=== PATIENT | female | born 1945 | race Caucasian/White ===

== ENCOUNTER 2021-07-22 10:36 | Inpatient (IN) | payer OTHER ==
[~2021-07-22] VITALS: Ht 162.6 cm; Wt 60.3 kg
[~2021-07-22 10:36] MED LIST: ALBUTEROL1.25 MG/3 IH; AMIODARONE HCL400 MG; AVAPRO300 MG PO; CEFADROXIL500 MG PO; COUMADIN1 MG PO; COUMADIN2.5 MG PO; IMDUR30 MG PO; ISOSORBIDE MONO30 MG; LEVAQUIN750 MG PO; LOPRESSOR25 MG; NORVASC5 MG PO; PERCOCET 5/3251 TAB PO; XARELTO10 MG PO; ZYNCOF 20-400120 ML PO
[2021-07-26] MEDS ORDERED: LISINOPRIL5 MG (10:22)
[2021-07-26] MEDS ORDERED: TRADJENTA5 MG (10:22)
[2021-07-26] MEDS ORDERED: SERTRALINE HCL50 MG (10:22)
[2021-07-26] MEDS ORDERED: ALENDRONATE SOD70 MG (10:22)
[2021-07-26] MEDS ORDERED: METOPROLOL SUCC25 MG (10:23)
[2021-07-26] MEDS ORDERED: CLONAZEPAM0.5 MG (10:23)
[2021-07-26] MEDS ORDERED: ROSUVASTATIN CA10 MG (10:23)
[2021-07-26] MEDS ORDERED: DILTIAZEM 24HR180 MG (10:23)
[2021-07-26] MEDS ORDERED: FUROSEMIDE20 MG (10:23)
[2021-07-26] MEDS ORDERED: FAMOTIDINE20 MG (10:24)
[2021-07-26] MEDS ORDERED: ATORVASTATIN CA20 MG (10:24)
[2021-07-26] MEDS ORDERED: SYMBICORT 16010.2 GM (10:24)
[2021-07-26] MEDS ORDERED: CARVEDILOL12.5 M1 (10:24)
== END 2021-08-07 21:42 | disposition home or self-care (01) | DRG 564 ==
LOC: ER 10:36 → MEDI 07-23 11:54
PROVIDERS: ADMIT Internal Medicine; ATTEND Internal Medicine
PROC: BW21ZZZ Computerized Tomography (CT Scan) of Abdomen and Pelvis (ICD-10-PCS; 2021-07-23)
PROC: 3E0F7GC Introduction of Other Therapeutic Substance into Respiratory Tract, Via Natural or Artificial Opening (ICD-10-PCS; 2021-07-25)
PROC: B24BZZZ Ultrasonography of Heart with Aorta (ICD-10-PCS; 2021-07-27)
PROC: 4A12X4Z Monitoring of Cardiac Electrical Activity, External Approach (ICD-10-PCS; 2021-07-27)
PROC: 30233N1 Transfusion of Nonautologous Red Blood Cells into Peripheral Vein, Percutaneous Approach (ICD-10-PCS; principal; 2021-07-29)
PROC: 5A09557 Assistance with Respiratory Ventilation, Greater than 96 Consecutive Hours, Continuous Positive Airway Pressure (ICD-10-PCS; 2021-07-30)
PROC: 30233R1 Transfusion of Nonautologous Platelets into Peripheral Vein, Percutaneous Approach (ICD-10-PCS; 2021-08-03)
PROC: 05HY33Z Insertion of Infusion Device into Upper Vein, Percutaneous Approach (ICD-10-PCS; 2021-08-04)
DX: M89.8X5 Other specified disorders of bone, thigh (principal); I50.23 Acute on chronic systolic (congestive) heart failure; A41.89 Other specified sepsis; J96.90 Respiratory failure, unspecified, unspecified whether with hypoxia or hypercapnia; I48.20 Chronic atrial fibrillation, unspecified; C90.00 Multiple myeloma not having achieved remission; E87.0 Hyperosmolality and hypernatremia; E87.2 Acidosis; E83.52 Hypercalcemia; D64.9 Anemia, unspecified; D69.6 Thrombocytopenia, unspecified; I11.0 Hypertensive heart disease with heart failure; J44.9 Chronic obstructive pulmonary disease, unspecified; E86.0 Dehydration; Z95.4 Presence of other heart-valve replacement; I27.20 Pulmonary hypertension, unspecified; J45.998 Other asthma; Z20.822 Contact with and (suspected) exposure to COVID-19; Z66 Do not resuscitate